=== PATIENT | male | born 1980 ===

== ENCOUNTER 2021-06-19 16:18 | Emergency (ER) | payer OTHER ==
[~2021-06-19] VITALS: Ht 180.3 cm; Wt 81.6 kg
[~2021-06-19 16:18] MED LIST: KETO10TA2 PO
== END 2021-06-19 19:12 | disposition home or self-care (01) ==
LOC: ER 16:18
DX: S43.084A Other dislocation of right shoulder joint, initial encounter (principal); X58.XXXA Exposure to other specified factors, initial encounter; Y93.89 Activity, other specified; Y92.89 Other specified places as the place of occurrence of the external cause; Y99.8 Other external cause status